=== PATIENT | male | born 1975 | race Caucasian/White ===

== ENCOUNTER 2016-11-29 23:23 | Observation (INO) | payer SELFPAY ==
--- NOTE | ~2016-11-29 | HP ---
History And Physical [id number] [place]. [address] NAME: VALENTINE LONG : 73 STATUS : ADM [place] PAT#: [id number] AGE: 41 ADM/REG DATE : 11/29/16 MR#: [id number] REPORT SERV DATE: 11/30/16 DICTATED BY: CANDACE CASTANEDA DATE: 11/30/16 REPORT STATUS : Draft TRANSCRIBED BY: OCTAVIANO DATE: 11/30/16 DATE OF ADMISSION: 11/29/2016 CHIEF COMPLAINT: Chest pain. 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 He left to work early at lunch for similar symptoms. The pain also radiated to his left neck that day. He describes associated shortness of breath, nausea, diaphoresis, and dizziness. Denies any belching. At its most intense, the chest pain is rated a 10/10. At time of interview in the [facility], he rates it a 4/10. He states his symptoms were relieved with aspirin, Nitrol paste, morphine and Zofran in the emergency room. The patient denies any personal history of myocardial infarction, stroke, DVT, or pulmonary embolus. The patient denies any recent fever or chills, although he has been taking an old antibiotic for recent tooth abscess. Denies palpitations. Consumes six 20-ounce Mountain Dews per day. No syncopal episodes. Denies PND or orthopnea. Of note, the patient was recently at [facility] two weeks ago for elevated blood pressure. He had previously been on Toprol-XL 50 mg daily, was switched to metoprolol tartrate 50 mg twice daily. His blood pressure reportedly was 210/120. He reports that it routinely runs 140/90. PAST MEDICAL HISTORY: 1. Hypertension. 2. Unknown cholesterol status. 3. Denies dyslipidemia or diabetes. 4. Recent tooth abscess. 5. Ongoing tobacco abuse. PAST SURGICAL HISTORY: Appendectomy and cholecystectomy. SOCIAL HISTORY: He is single with two children. He is a signal supervisor of a paving crew. Does not have a structured exercise routine. Smokes one and a half packs per day for the past 25 plus years. Consumes six beers per year. Denies illicits. FAMILY HISTORY: Father with a heart attack at 54 and subsequent AVR and bypass surgery, remains alive at 61. Mother with history of hypertension and diabetes. Sister with hypertension. REVIEW OF SYSTEMS: A 14-point review of systems performed, significant for HPI, including snores per report with no formal sleep study. A blood pressure of 140/90 at home. Otherwise, complete review of systems obtained and negative. History And Physical [address] [address] NAME: VALENTINE LONG : 73 STATUS : ADM [place] PAT#: [id number] AGE: 41 ADM/REG DATE : 11/29/16 MR#: [id number] REPORT SERV DATE: 11/30/16 DICTATED BY: CANDACE CASTANEDA DATE: 11/30/16 REPORT STATUS : Draft TRANSCRIBED BY: OCTAVIANO DATE: 11/30/16 ALLERGIES: NO KNOWN DRUG ALLERGIES. HOME MEDICINES: Goody powder two packs per day p.r.n. Metoprolol tartrate 50 mg twice daily. Unknown antibiotic recently. PHYSICAL EXAMINATION: VITAL SIGNS: Bilateral blood pressures on arrival, right 153/94, left 158/94, this morning 146/90, pulse 63, respirations 15, temperature 97.5, and O2 saturation 97% on room air. Height 5 feet 10 inches, weight 200 pounds. BMI 28.6. GENERAL: Cooperative, in no apparent distress. HEENT: Pupils 2 mm, sclera nonicteric. Nares patent. Moist mucous membranes. No xanthelasma. NECK: Trachea midline, no thyromegaly. No JVD. No bruits. LYMPH: No cervical lymphadenopathy. No supraclavicular lymphadenopathy. RESPIRATORY: Unlabored respirations. Breath sounds clear bilaterally to posterior auscultation. Expiratory wheeze at bilateral lower lobes. No rhonchi. CARDIOVASCULAR: Regular rate. No murmur, rub or gallop appreciated. Extremities without edema. Pulses 2+ bilaterally. ABDOMEN: Soft, nontender, nondistended, normal bowel sounds auscultated throughout. No organomegaly. SKIN: Warm, dry extremities. No pallor, or cyanosis. PSYCHIATRIC: Appropriate affect. Alert, oriented x3. LABORATORY DATA: Troponin less than 0.02 x3. Potassium 4.5. BUN 9, creatinine 1.03, glucose 98, magnesium 2.3. WBC 10.0, hemoglobin 15.5, hematocrit 44.0, platelet count 258,000. EKG sinus rhythm, IRBBB. ASSESSMENT AND PLAN: 1. Substernal chest pain in the patient with multiple risk factors who has been observed in the CPOU overnight to rule out myocardial infarction with serial enzymes and serial EKGs and held n.p.o. Would like to proceed with exercise treadmill only today, which may be converted to MPI if warranted. The patient will be discharged home if low risk, no ischemia. If anything suggestive of ischemia, Cardiology referral will be initiated. Otherwise, the patient will be asked to follow up with his PCP in one to two weeks with all studies being sent to that office. 2. Hypertension. Hold beta-jonah for TMO. Add lisinopril 5 mg daily. Follow up with PCP with a BMP check in one to two weeks at that visit. 3. Unknown cholesterol. Check a fasting lipid panel. 4. Tobacco abuse. Counseled regarding cessation. 5. Caffeine indiscretion. Counseled to hydrate with water. Decrease or abstain from excessive caffeinated beverage use. RACHID/OCTAVIANO Candace History And Physical [address] [address] NAME: VALENTINE LONG : 73 STATUS : ADM [place] PAT#: [id number] AGE: 41 ADM/REG DATE : 11/29/16 MR#: [id number] REPORT SERV DATE: 11/30/16 DICTATED BY: CANDACE CASTANEDA DATE: 11/30/16 REPORT STATUS : Draft TRANSCRIBED BY: MODL DATE: 11/30/16 NELLIE Castaneda, PRINTING SCREEN ASSEMBLER-BC / [id number] CC: NELLIE Comer, PRINTING SCREEN ASSEMBLER-BC Joseph Dela Cruz MD
[2016-11-29 19:14] LABS: BASOPHILS 0.7 %; BASOPHILS ABSOLUTE 0.07 10/3/uL (0.0-0.16); EOSINOPHILS 5.7 %; EOSINOPHILS ABSOLUTE 0.57 10/3/uL (0.0-0.53); ER CBC TAT 0 Hrs 00 Mins; HEMOGLOBIN 15.5 g/dL (13.6-17.8); IMMATURE GRANULOCYTES 0.6 %; IMMATURE GRANULOCYTES ABSOLUTE 0.06 10/3/uL (0.0-0.11); LYMPHOCYTES 39.7 %; LYMPHOCYTES ABSOLUTE 3.97 10/3/uL (0.67-4.30); MEAN CORPUS HGB CONC 35.2 g/dL (32.0-36.0); MEAN PLATELET VOLUME 9.4 fL (9.2-13.0); MONOCYTES 8.6 %; MONOCYTES ABSOLUTE 0.86 10/3/uL (0.21-1.20); NEUTROPHILS 44.7 %; NEUTROPHILS ABSOLUTE 4.47 10/3/uL (2.02-8.40); PLATELET COUNT 258 10/3/uL (150-400); RBC DISTRIBUTION WIDTH 13.8 % (12.0-16.0)
[2016-11-29 19:15] LABS: MANUAL DIFF NO %
[2016-11-29 19:19] LABS: PROTIME (NOT ORD) 12.6 SEC (12.0-14.5)
[2016-11-29 19:30] LABS: BUN (BLOOD UREA NITROGEN) 9 MG/DL (6-23); CALCIUM, SERUM 9.1 MG/DL (8.5-10.4); CHEST PAIN PROFILE TAT 0 Hrs 24 Mins; CHLORIDE, SERUM 105 MMOL/L (96-112); CO2 (CARBON DIOXIDE) 31 MMOL/L (24-34); CREATININE 1.03 MG/DL (0.70-1.30); GFR AFRICAN AMERICAN 103 ML/MIN (>=60); GFR NON AFRICAN AMERICAN 89 ML/MIN (>=60); GLUCOSE, SERUM 98 MG/DL (60-99); POTASSIUM, SERUM 4.5 MMOL/L (3.5-5.3); SODIUM, SERUM 140 MMOL/L (135-148); TROPONIN I <0.02 NG/ML (<0.05)
[2016-11-29] MEDS ORDERED: LOP50 PO (23:38)
[2016-11-29] MEDS ORDERED: UNKNOWN ABX PO (23:39)
[2016-11-29] MEDS ORDERED: GOODY'S EX-STR1 EAC1 PO (23:40)
[2016-11-30 03:41] LABS: TROPONIN I <0.02 NG/ML (<0.05)
[2016-11-30 12:58] LABS: CHOL/HDL RATIO(NOT ORDER) 7.4 (0-5); CHOLESTEROL 177 MG/DL (< 200); HDL CHOLESTEROL 24 MG/DL (> 39); NON-HDL CHOLESTEROL 153 MG/DL (< 160); TRIGLYCERIDE 584 MG/DL (< 150)
[2016-11-30] MEDS ORDERED: PRIN5 PO (15:32)
== END 2016-11-30 15:48 | disposition home or self-care (01) ==
LOC: ER 23:23 → CDU1 23:26
PROVIDERS: Clinical Nurse Specialist; Emergency Medicine
DX: R07.2 Precordial pain (principal); I10 Essential (primary) hypertension; F17.210 Nicotine dependence, cigarettes, uncomplicated; Z90.49 Acquired absence of other specified parts of digestive tract
CPT/HCPCS: 71020; 78452; 80048; 80061; 83735; 84484; 85025; 85610; 85730; 93005; 93017; 96374; 96375; 96376; 99285; A9270-GY; A9502; G0378; J2405